=== PATIENT | female | born 1995 | race Caucasian/White ===

== ENCOUNTER 2017-05-17 22:40 | Emergency (ER) | payer OTHER ==
[2017-05-17 22:48] VITALS: BP 122/69; PULSE 116; BMI 30.7
--- NOTE | 2017-05-18 00:44 | PDOC ---
History of Present Illness - General Chief Complaint: Sore Throat Stated Complaint: PAIN Time Seen by Provider: 05/17/17 23:52 - History of Present Illness Initial Comments: 05/18/17 00:51 CHIEF COMPLAINT: throat pain HISTORY OF PRESENT ILLNESS: 21 yo F with no PMH presents to ED with throat pain x 3 days. Patient reports subjective fever 2 days ago but has not had fever since. Patient denies any URI symptoms including cough, runny nose, sneezing. Patient denies any difficulty breathing or sensation of closing of the throat. PAST MEDICAL HISTORY: Denies past medical history FAMILY HISTORY: Denies SOCIAL HISTORY:Denies tobacco, alcohol, illicit drug use. SURGICAL HISTORY: Denies ALLERGIES: No known drug allergies REVIEW OF SYSTEMS General/Constitutional: Denies fever or chills. Denies weakness, weight change. HEENT: Denies change in vision. Denies ear pain or discharge. Denies sore throat. Cardiovascular: Denies chest pain or shortness of breath. Respiratory: Denies cough, wheezing, or hemoptysis. Gastrointestinal: Denies nausea, vomiting, diarrhea or constipation. Denies rectal bleeding. Genitourinary: Denies dysuria, frequency, or change in urination. Musculoskeletal: Denies joint or muscle swelling or pain. Denies neck or back pain. Skin and breasts: Denies rash or easy bruising. Neurologic: Denies headache, vertigo, loss of consciousness, or loss of sensation. PHYSICAL EXAM General Appearance: Well-appearing, appropriately dressed. No apparent distress , no intoxication. HEENT: 2+ tonsils b/l with exudate. No peritonsillar abscess appreciated. EOMI, PERRLA, normal ENT inspection, normal voice, TMs normal, pharynx normal. No conjunctival pallor. No photophobia, scleral icterus. Neck: Supple. Trachea midline. No tenderness, rigidity, carotid bruit, stridor , lymphadenopathy, or thyromegaly. Respiratory/Chest: Lungs CTAB. No shortness of breath, chest tenderness, respiratory distress, accessory muscle use. No crackles, rales, rhonchi, stridor , wheezing, dullness Cardiovascular: RRR. S1, S2. Musculoskeletal/Extremities: Normal inspection. FROM of all extremities, normal capillary refill. Pelvis Stable. No CVA tenderness. No tenderness to extremities, pedal edema, swelling, erythema or deformity. Integumentary: Appropriate color, dry, warm. 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 Fully oriented, alert. Appropriate mood/affect. Motor strength 5/5. No appreciable EOM palsy, facial droop or sensory deficit. Past History - Past Medical History Allergies/Adverse Reactions: Allergies Allergy/AdvReac Type Severity Reaction Status Date / Time No Known Allergies Allergy Verified 05/17/17 22:45 Home Medications: Ambulatory Orders Ibuprofen [Motrin -] 600 mg PO QID #20 tablet 03/21/16 Amoxicillin - [Amoxicillin 500mg Capsule -] 500 mg PO BID #20 capsule 05/18/17 COPD: No Other medical history: Pt denies - Suicide/Smoking/Psychosocial Hx Smoking History: Never smoked Have you smoked in the past 12 months: No Information on smoking cessation initiated: No Hx Alcohol Use: No Drug/Substance Use Hx: No Substance Use Type: None *Physical Exam - Vital Signs Last Vital Signs Temp Pulse Resp BP Pulse Ox 99.1 F 116 H 20 122/69 99 05/17/17 22:46 05/17/17 22:46 05/17/17 22:46 05/17/17 22:46 05/17/17 22:46 ED Treatment Course - ADDITIONAL ORDERS Additional order review: 05/17/17 23:58 Group A Strep Rapid Antigen - Final Throat Medical Decision Making - Medical Decision Making 05/18/17 00:59 21 yo F with no PMH presents to ED with throat pain x 3 days. -amoxicillin *DC/Admit/Observation/Transfer Diagnosis at time of Disposition: Strep pharyngitis - Discharge Dispostion Disposition: HOME Condition at time of disposition: Stable Admit: No - Prescriptions Prescriptions: Amoxicillin - [Amoxicillin 500mg Capsule -] 500 mg PO BID #20 capsule - Referrals Referrals: Alexsander Arce MD [Staff Physician] - - Patient Instructions Printed Discharge Instructions: DI for Strep Throat Additional Instructions: Please take medications as prescribed. Complete the ENTIRE course of antibiotics, even if you are feeling better. If you develop any persistent fever unrelieved by Motrin or Tylenol, difficulty breathing, swelling/closing of the throat or neck, or any new or worsening symptoms, please return to the ER. If you have recurrent episodes of strep throat, you may choose to see the ENT doctor (referral enclosed) for elective tonsillectomy. - Post Discharge Activity Forms/Work/School Notes: Back to Work
[2017-05-18] MEDS ORDERED: AMOXICILLIN ORAL SUSPENSION - 250 MG/5 ML ONE (01:03)
[2017-05-18] MEDS ORDERED: IBUPROFEN 100 MG/5 ML UNIT DOSE CUPS PO ONE (01:03)
[2017-05-18] MEDS ORDERED: AMOXICILLIN ORAL SUSPENSION - 400 MG/5 ML PO ONE (01:03)
[2017-05-18] MEDS ORDERED: IBUPROFEN 100 MG/5 ML UNIT DOSE CUPS ONE (01:03)
[2017-05-18 01:53] VITALS: TEMP 100.5
== END 2017-05-18 01:53 | disposition home or self-care (01) ==
LOC: JER 22:40
DX: J02.0 Streptococcal pharyngitis (principal); B95.5 Unspecified streptococcus as the cause of diseases classified elsewhere
CPT/HCPCS: 87070; 87430; 99281-25

== ENCOUNTER 2021-01-15 00:33 | Emergency (ER) | payer OTHER ==
[2021-01-15 00:46] VITALS: BP 117/74; PULSE 70; TEMP 98; BMI 29.9
[2021-01-15] MEDS ORDERED: ACETAMINOPHEN 500 MG TABLET (FP) PO ONE (01:51)
[2021-01-15] MEDS ORDERED: LIDOCAINE 5% TOPICAL PATCH TP ONE (01:51)
[2021-01-15] MEDS ORDERED: ACETAMINOPHEN 325 MG TABLET (FP) ONE (02:07)
[2021-01-15] MEDS ORDERED: LIDOCAINE 5% TOPICAL PATCH ONE (02:08)
[2021-01-15] MEDS ORDERED: METOCLOPRAMIDE HCL INJECTION 10 MG/2 ML VIAL IVPUSH ONE (03:56)
[2021-01-15] MEDS ORDERED: DEXAMETHASONE SOD PHOSPHATE 10 MG/1 ML VIAL IM ONE (04:18)
[2021-01-15] MEDS ORDERED: DEXAMETHASONE SOD PHOSPHATE 10 MG/1 ML VIAL ONE (05:13)
[2021-01-15] MEDS ORDERED: LIDOCAINE PATCH REMOVAL MC SCH (22:00)
== END 2021-01-15 05:36 | disposition home or self-care (01) ==
LOC: JER 00:33
PROC: 3E023GC Introduction of Other Therapeutic Substance into Muscle, Percutaneous Approach (ICD-10-PCS; principal; 2021-01-15)
PROC: 3E033GC Introduction of Other Therapeutic Substance into Peripheral Vein, Percutaneous Approach (ICD-10-PCS; 2021-01-15)
DX: M54.2 Cervicalgia (principal); R51.9 Headache, unspecified
CPT/HCPCS: 70450-TC; 72125-TC; 99284-25; J1100

== ENCOUNTER 2023-01-08 21:37 | Emergency (ER) | payer OTHER ==
[2023-01-08 21:52] VITALS: BMI 29.9
[2023-01-08] MEDS ORDERED: methylPREDNISolone NA SUCC 125 MG/2 ML VIAL ONE (22:04)
[2023-01-08] MEDS ORDERED: FAMOTIDINE 20 MG/50 ML IVPB 20 MG/50 ML MG IVPB ONE ×2 (22:05→22:25)
[2023-01-08 22:25] LABS: BASO % 0.9 % (0-2.0); EOS % 3.1 % (0-4.5); HEMATOCRIT 37.6 % (32.4-45.2); LYMPH % 30.4 % (8-40); MCH 30.1 pg (25.7-33.7); MCHC 34.7 g/dl (32.0-36.0); MEAN CELL VOLUME 86.9 fl (80-96); MEAN PLT VOLUME 8.1 fl (7.5-11.1); MONO % 6.8 % (3.8-10.2); NEUT % 58.8 % (42.8-82.8); PLATELET COUNT 234 10^3/uL (134-434); RBC 4.33 M/mm3 (3.60-5.2); RDW 13.7 % (11.6-15.6); WHITE BLOOD COUNT 9.3 K/mm3 (4.0-10.0)
[2023-01-08 22:33] VITALS: BP 102/58; PULSE 76; RESP 19; TEMP 98.8
[2023-01-08 22:39] LABS: POTASSIUM 3.7 mmol/L (3.5-5.1)
[2023-01-08 22:41] LABS: ALBUMIN 4.1 g/dl (3.4-5.0); BLOOD UREA NITROGEN 14.7 mg/dL (7-18)
[2023-01-08 22:43] LABS: CREATININE 0.8 mg/dL (0.55-1.3)
[2023-01-08 22:45] LABS: BILIRUBIN,TOTAL 0.4 mg/dL (0.2-1); TOT PROT 7.4 g/dl (6.4-8.2)
[2023-01-09] MEDS ORDERED: HYDROCORTISONE SOD SUCCINATE 100 MG/2 ML VIAL IVPUSH ONE (00:10)
[2023-01-09] MEDS ORDERED: methylPREDNISolone NA SUCC 125 MG/2 ML VIAL IVPUSH ONE (00:13)
[2023-01-09] MEDS ORDERED: methylPREDNISolone NA SUCC 125 MG/2 ML VIAL ONE (00:14)
== END 2023-01-09 01:45 | disposition home or self-care (01) ==
LOC: JER 21:37
PROC: 3E033GC Introduction of Other Therapeutic Substance into Peripheral Vein, Percutaneous Approach (ICD-10-PCS; principal; 2023-01-08)
PROC: 3E033GC Introduction of Other Therapeutic Substance into Peripheral Vein, Percutaneous Approach (ICD-10-PCS; 2023-01-08)
PROC: 3E033GC Introduction of Other Therapeutic Substance into Peripheral Vein, Percutaneous Approach (ICD-10-PCS; 2023-01-09)
DX: R21 Rash and other nonspecific skin eruption (principal); R22.0 Localized swelling, mass and lump, head; T78.40XA Allergy, unspecified, initial encounter
CPT/HCPCS: 36415; 80053; 85025; 99284-25

== ENCOUNTER 2023-01-14 15:04 | Emergency (ER) | payer OTHER ==
[2023-01-14 15:12] VITALS: BP 134/78; PULSE 87; RESP 20; TEMP 99.6; BMI 29.9
[2023-01-14] MEDS ORDERED: FAMOTIDINE 20 MG/50 ML IVPB 20 MG/50 ML MG IVPB ONE (15:32)
[2023-01-14] MEDS ORDERED: methylPREDNISolone NA SUCC 125 MG/2 ML VIAL IVPUSH ONE (15:32)
[2023-01-14] MEDS ORDERED: FAMOTIDINE 10 MG/ML VIAL IVPB ONE (15:53)
[2023-01-14] MEDS ORDERED: methylPREDNISolone NA SUCC 125 MG/2 ML VIAL ONE ×2 (15:53→15:55)
== END 2023-01-14 18:50 | disposition home or self-care (01) ==
LOC: JER 15:04
PROC: 3E033GC Introduction of Other Therapeutic Substance into Peripheral Vein, Percutaneous Approach (ICD-10-PCS; principal; 2023-01-14)
PROC: 3E033GC Introduction of Other Therapeutic Substance into Peripheral Vein, Percutaneous Approach (ICD-10-PCS; 2023-01-14)
PROC: 3E033GC Introduction of Other Therapeutic Substance into Peripheral Vein, Percutaneous Approach (ICD-10-PCS; 2023-01-14)
DX: L50.9 Urticaria, unspecified (principal); T78.40XA Allergy, unspecified, initial encounter
CPT/HCPCS: 99284-25